=== PATIENT | male | born 1990 ===

== ENCOUNTER 2020-08-25 14:09 | Emergency (ER) | payer MEDICAID ==
[2020-08-25 15:05] LABS: Absolute Neutrophil Ct (ANC) 7.85 (1.4-6.9); BASOPHIL % 0.3 % (0.0-0.4); Basophil (Absolute #) 0.03 (0-0.4); Eosinophil % 2.4 % (0.00-5.0); Eosinophil (Absolute #) 0.28 (0-0.5); Hemoglobin 16.3 gm/dl (12.5-18.0); Lymphocyte (Absolute #) 2.86 (1.0-4.6); Mean Cell Volume 92.6 fl (78-100); Mean Corpuscular Hemoglobin 30.2 pg (26-32); Mean Corpuscular Hgb Concent. 32.6 g/dl (32-36); Mean Platelet Volume 10.8 fl (7.5-11.0); Monocyte (Absolute #) 0.88 (0.0-1.3); Monocytes % 7.4 % (0.0-12.0); Neutrophil % 65.9 % (36.0-66.0); Platelet Count 253 K/mm3 (150-450); Red Cell Distribution Width 14.9 % (11.5-14.0); White Blood Count 11.9 K/mm3 (4.0-10.5)
[2020-08-25 15:15] LABS: ALBUMIN 4.4 g/dL (3.5-5.0); ALKALINE PHOSPHATASE 89 U/L (38-126); BLOOD UREA NITROGEN 18 mg/dL (9-20); CHLORIDE 104 mmol/L (98-107); Calcium 9.4 mg/dL (8.4-10.2); Carbon Dioxide 30 mmol/L (22-30); Creatinine 1 0.88 mg/dL (0.66-1.25); EST GLOMERULAR FILTRATION RATE > 60.0 ML/MIN; Glucose 86 mg/dL (74-106); Potassium 4.8 mmol/L (3.5-5.1); SGOT/AST 46 U/L (17-59); SGPT/ALT 71 U/L (0-50); SODIUM 138 mmol/L (137-145); Total Protein 7.9 g/dL (6.3-8.2)
[2020-08-25 15:17] LABS: ACETAMINOPHEN < 10 ug/ml (10-30); ETHYL ALCOHOL < 10 mg/dL (0-10); SALICYLATE < 1.0 mg/dL (2-20)
--- NOTE | 2020-08-25 15:19 | ERPHSYRPT ---
- History of Present Illness Time Seen by Provider: 08/25/20 14:30 Source: patient, family, EMS Exam Limitations: no limitations Patient Subjective Stated Complaint: PT HERE FOR STRANGLING SELF AT HOME TODAY. Triage Nursing Assessment: PT ARRIVED PER EMS FOR STRANGLING SELF AT HOME, TOLD EMS THAT THEY HEARD A LOUD NOISE AND WHEN WENT UP STAIRS HE WAS ON FLOOR IN A CLOSET WITH A ROPE AROUND NECK AND THE HAD IT OFF, PT IS ALERT, ANGRY,HAS PU NCTURE WOUND TO TONGUE WITH SOME SWELLING, DRIED BLOOD TO NOSE, AND REDDNESS TO NECK WITH SOME SWELLING, HE DENIES ANY LOC, REFUSES C COLLAR IN PLACE,AND STATES HE LIKE THROAT IS SWELLING, NO DROOLING Physician History: 29 years old is brought in the ER for evaluation after he tried to hang himself with a rope at home. Per she heard a loud noise upstairs and found him lying on the floor with a rope around his neck in the closet. Patient report he tried to hang himself but rope broke. Patient is agitated on presentation in the ER and wants to go home, reports he is not suicidal but cannot give any explanation why he tried to hang himself. He has done same way almost a year ago as well per patient. Patient reports using drugs regularly and last use was 2 days ago denies alcohol intake. Denies any homicidal ideations. Patient reports his kids were taken away from him recently and that makes him very anxious and depressed and do not know what to do and do not see any hope that he will be able to see that Severity of Symptoms-Max: severe Associated Symptoms: agitated, anxiety, depressed, frustrated, No hallucinating Previous symptoms: same symptoms as today Allergies/Adverse Reactions: No Known Drug Allergies Allergy (Unverified 08/25/20 14:39) Home Medications: No Reportable Medications [No Reported Medications] 08/25/20 [History] Hx Tetanus, Diphtheria Vaccination/Date Given: No Hx Pneumococcal Vaccination/Date Given: No Immunizations Up to Date: Yes Travel Risk - International Travel Have you traveled outside of the country in past 3 weeks: No - Coronavirus Screening Are you exhibiting any of the following symptoms?: No Close contact with a COVID-19 positive Pt in past 14-21 Days: No - Past Medical History Pertinent Past Medical History: No - Past Surgical History Past Surgical History: Yes Gastrointestinal: Appendectomy - Social History Smoking Status: Current every day smoker Exposure to second hand smoke: Yes Drug Use: methamphetamines Patient Lives Alone: Yes - Review of Systems Constitutional: No Symptoms Eyes: No Symptoms Ears, Nose, & Throat: Other Respiratory: No Symptoms Cardiac: No Symptoms Abdominal/Gastrointestinal: No Symptoms Genitourinary Symptoms: No Symptoms Musculoskeletal: Myalgias Skin: No Symptoms Neurological: No Symptoms Psychological: Drug Abuse, Anxiety, Depression, Suicidal Ideations Endocrine: No Symptoms Hematologic/Lymphatic: No Symptoms - Nursing Vital Signs Nursing Vital Signs: Initial Vital Signs Temperature 97.1 F 08/25/20 14:12 Respiratory Rate 16 08/25/20 14:12 Pain Scale Pain Intensity 4 - Physical Exam General Appearance: alert, anxiety Eyes, Ears, Nose, Throat Exam: other (Dried blood on the left nostril but no nasal bleeding noticed otherwise.) Neck Exam: supple, other (Strangulation harrison around the lateral neck bilaterally with some muscle tenderness but no midline tenderness. Intact range of motion.), No subcutaneous emphysema, No tenderness midline Respiratory Exam: normal breath sounds, lungs clear Cardiovascular Exam: regular rate/rhythm, normal heart sounds Gastrointestinal/Abdominal Exam: soft, normal bowel sounds, No tenderness Extremities Exam: normal inspection, normal range of motion Neurological Exam: alert, calm, ice handler II-XII nml as tested, oriented x 3 Behavior/Eye Contact/Speech: alert & cooperative, cooperative, good eye contact, increased rate of speech, compulsive Thoughts/Hallucinations: no apparent hallucination Skin Exam: normal color SpO2 Interpretation: normal O2 Delivery: Room Air - Course EKG Interpreted by Me: RATE (102), Sinus Tach, NORMAL AXIS, NORMAL INTERVALS, NORMAL QRS Ordered Tests: Active Orders 24 hr Category Date Time Status EKG-ER Only STAT Care 08/25/20 14:30 Active IV Insertion STAT Care 08/25/20 14:30 Active House Regular Diet Diet 08/26/20 Breakfast Active CERVICAL SPINE WITH CONTRAST [CT] Stat Exams 08/25/20 16:14 Completed CHEST 1 VIEW (PORTABLE) Stat Exams 08/25/20 14:56 Completed HEAD WITHOUT CONTRAST [CT] Stat Exams 08/25/20 14:31 Completed ACETAMINOPHEN Stat Lab 08/25/20 14:40 Completed CBC W DIFF Stat Lab 08/25/20 14:40 Completed CK (IN-HOUSE) [CK-Creatinine Phosphokinase] Stat Lab 08/25/20 14:40 Completed CMP Stat Lab 08/25/20 14:40 Completed ETHYL ALCOHOL Stat Lab 08/25/20 14:40 Completed SALICYLATE Stat Lab 08/25/20 14:40 Completed UA W/RFX UR CULTURE Stat Lab 08/25/20 18:14 Completed Urine Triage Profile Stat Lab 08/25/20 18:14 Received Lab/Rad Data: Laboratory Result Diagrams 08/25/20 14:40 08/25/20 14:40 Laboratory Results 08/25/20 08/25/20 08/25/20 Range/Units 18:14 16:21 14:40 WBC (4.0-10.5) K/mm3 RBC (4.1-5.6) M/mm3 Hgb (12.5-18.0) gm/dl Hct (42-50) % MCV (78-100) fl MCH (26-32) pg MCHC (32-36) g/dl RDW (11.5-14.0) % Plt Count (150-450) K/mm3 MPV (7.5-11.0) fl Gran % (36.0-66.0) % Eos # (Auto) (0-0.5) Absolute Lymphs (auto) (1.0-4.6) Absolute Monos (auto) (0.0-1.3) Lymphocytes % (24.0-44.0) % Monocytes % (0.0-12.0) % Eosinophils % (0.00-5.0) % Basophils % (0.0-0.4) % Absolute Granulocytes (1.4-6.9) Basophils # (0-0.4) Sodium (137-145) mmol/L Potassium (3.5-5.1) mmol/L Chloride (98-107) mmol/L Carbon Dioxide (22-30) mmol/L Anion Gap (5-15) MEQ/L BUN (9-20) mg/dL Creatinine (0.66-1.25) mg/dL Estimated GFR ML/MIN Glucose (74-106) mg/dL Calcium (8.4-10.2) mg/dL Total Bilirubin (0.2-1.3) mg/dL AST (17-59) U/L ALT (0-50) U/L Alkaline Phosphatase (38-126) U/L Creatine Kinase 157 (55-170) U/L Serum Total Protein (6.3-8.2) g/dL Albumin (3.5-5.0) g/dL Urine Color YELLOW (YELLOW) Urine Appearance CLOUDY (CLEAR) Urine pH 6.0 (5-6) Ur Specific Cheney 1.020 (1.005-1.025) Urine Protein 30 (Negative) Urine Ketones NEGATIVE (NEGATIVE) Urine Blood NEGATIVE (0-5) Klaus/ul Urine Nitrite NEGATIVE (NEGATIVE) Urine Bilirubin NEGATIVE (NEGATIVE) Urine Urobilinogen 2 (0-1) mg/dL Ur Leukocyte Esterase NEGATIVE (NEGATIVE) Urine WBC (Auto) 0-2 (0-5) /HPF Urine RBC (Auto) 0-2 (0-2) /HPF U Epithel Cells (Auto) NONE (FEW) /HPF Urine Bacteria (Auto) NONE SEEN (NEGATIVE) /HPF Amorphous Crystals FEW (NEGATIVE) /HPF Urine Mucus (Auto) SLIGHT (NEGATIVE) /HPF Urine Sperm (Auto) PRESENT (NEGATIVE) /HPF Urine Culture Reflexed NO (NO) Urine Glucose NEGATIVE (NEGATIVE) mg/dL Salicylates (2-20) mg/dL Acetaminophen (10-30) ug/ml Ethyl Alcohol (0-10) mg/dL SARS-CoV-2 (PCR) NEGATIVE (NEGATIVE) 08/25/20 08/25/20 Range/Units 14:40 14:40 WBC 11.9 H (4.0-10.5) K/mm3 RBC 5.40 (4.1-5.6) M/mm3 Hgb 16.3 (12.5-18.0) gm/dl Hct 50.0 (42-50) % MCV 92.6 (78-100) fl MCH 30.2 (26-32) pg MCHC 32.6 (32-36) g/dl RDW 14.9 H (11.5-14.0) % Plt Count 253 (150-450) K/mm3 MPV 10.8 (7.5-11.0) fl Gran % 65.9 (36.0-66.0) % Eos # (Auto) 0.28 (0-0.5) Absolute Lymphs (auto) 2.86 (1.0-4.6) Absolute Monos (auto) 0.88 (0.0-1.3) Lymphocytes % 24.0 (24.0-44.0) % Monocytes % 7.4 (0.0-12.0) % Eosinophils % 2.4 (0.00-5.0) % Basophils % 0.3 (0.0-0.4) % Absolute Granulocytes 7.85 H (1.4-6.9) Basophils # 0.03 (0-0.4) Sodium 138 (137-145) mmol/L Potassium 4.8 (3.5-5.1) mmol/L Chloride 104 (98-107) mmol/L Carbon Dioxide 30 (22-30) mmol/L Anion Gap 9.0 (5-15) MEQ/L BUN 18 (9-20) mg/dL Creatinine 0.88 (0.66-1.25) mg/dL Estimated GFR > 60.0 ML/MIN Glucose 86 (74-106) mg/dL Calcium 9.4 (8.4-10.2) mg/dL Total Bilirubin 0.30 (0.2-1.3) mg/dL AST 46 (17-59) U/L ALT 71 H (0-50) U/L Alkaline Phosphatase 89 (38-126) U/L Creatine Kinase (55-170) U/L Serum Total Protein 7.9 (6.3-8.2) g/dL Albumin 4.4 (3.5-5.0) g/dL Urine Color (YELLOW) Urine Appearance (CLEAR) Urine pH (5-6) Ur Specific Cheney (1.005-1.025) Urine Protein (Negative) Urine Ketones (NEGATIVE) Urine Blood (0-5) Klaus/ul Urine Nitrite (NEGATIVE) Urine Bilirubin (NEGATIVE) Urine Urobilinogen (0-1) mg/dL Ur Leukocyte Esterase (NEGATIVE) Urine WBC (Auto) (0-5) /HPF Urine RBC (Auto) (0-2) /HPF U Epithel Cells (Auto) (FEW) /HPF Urine Bacteria (Auto) (NEGATIVE) /HPF Amorphous Crystals (NEGATIVE) /HPF Urine Mucus (Auto) (NEGATIVE) /HPF Urine Sperm (Auto) (NEGATIVE) /HPF Urine Culture Reflexed (NO) Urine Glucose (NEGATIVE) mg/dL Salicylates < 1.0 L (2-20) mg/dL Acetaminophen < 10 L (10-30) ug/ml Ethyl Alcohol < 10 (0-10) mg/dL SARS-CoV-2 (PCR) (NEGATIVE) - Progress Progress: unchanged Progress Note: 08/25/20 17:42 29 years old is evaluated for suicidal attempt with hanging himself. Patient has hang harrison on his neck with some muscular tenderness. I have recommended c- collar which patient refused. Patient wants to leave. ED hold is placed on. I have obtained CT head and neck which are negative. Chest x-ray negative. EKG did not show any acute ischemic changes. Work-up in the ER is grossly negative. He is medically cleared. Behavioral health is consulted and patient is accepted for transfer. 08/25/20 18:50 Dr. Coronel is the accepting physician at [facility]. Counseled pt/family regarding: lab results, diagnosis, rad results - Departure Departure Disposition: Transfer Clinical Impression: Suicide attempt Condition: Stable Critical Care Time: No Referrals: DOCTOR,NO FAMILY [Primary Care Provider] -
--- NOTE | 2020-08-25 18:24 | XRAY ---
Indication: Attempted suicide. Comparison: July 15, 2010. Portable chest demonstrates normal heart, lungs, and bony thorax.
--- NOTE | 2020-08-25 18:26 | XRAY ---
Indication: Attempted suicide by hanging. Loss of consciousness. Multiple contiguous axial images obtained through the head without contrast. Comparison: December 16, 2009. Normal appearing brain parenchyma, ventricles, and bony calvarium. Visualized paranasal sinuses and mastoid air cells are clear. Impression: Continued normal CT head without contrast exam. Comment: Preliminary interpretation was made by [facility]. No critical discrepancy.
[2020-08-25 18:28] LABS: Amourphous Crystal FEW /HPF (NEGATIVE); Appearance CLOUDY (CLEAR); Bilirubin NEGATIVE (NEGATIVE); Blood NEGATIVE Ery/ul (0-5); Glucose NEGATIVE (NEGATIVE); Ketones NEGATIVE (NEGATIVE); Leukocyte Esterase NEGATIVE (NEGATIVE); Mucus SLIGHT /HPF (NEGATIVE); Nitrite NEGATIVE (NEGATIVE); Protein,Urine Dip 30 (Negative); RBC 0-2 /HPF (0-2); Sperm PRESENT /HPF (NEGATIVE); Urobilinogen 2 mg/dL (0-1); WBC 0-2 /HPF (0-5)
--- NOTE | 2020-08-25 18:28 | XRAY ---
Indication: Attempted suicide by hanging. Neck pain. Multiple contiguous axial images obtained through the cervical spine. Sagittal and coronal reformatted images obtained. Comparison: None. Axial images negative for acute fracture, suspicious bony lesions, or spinal canal stenosis. Minimal C5-C6 broad-based disc osteophyte complex. Sagittal and coronal reformatted images and this is normal alignment with vertebral body heights/disc spaces maintained. No acute fracture, subluxation, or jumped facets. Normal appearing craniocervical junction. Visualized noncontrasted soft tissues including apices are unremarkable. Impression: Minimal C5-C6 degenerative disc disease. Otherwise negative CT cervical spine. Comment: Preliminary interpretation was made by [facility]. No critical discrepancy.
[2020-08-25 18:29] LABS: Bacteria NONE SEEN /HPF (NEGATIVE)
[2020-08-25 18:39] LABS: Barbiturate,Urine NEGATIVE (NEGATIVE); Benzodiazepine,Urine NEGATIVE (NEGATIVE); Cocaine,Urine NEGATIVE (NEGATIVE); Methadone,Urine NEGATIVE (NEGATIVE); Opiate,Urine NEGATIVE (NEGATIVE); PCP,Urine NEGATIVE (NEGATIVE); THC,Urine POSITIVE (NEGATIVE)
[2020-08-25 19:09] LABS: Amphetamine,Urine POSITIVE (NEGATIVE)
[2020-08-25 20:09] VITALS: BP 131/82; PULSE 92; O2SAT 98
== END 2020-08-25 21:00 | disposition short-term general hospital (02) ==
LOC: ED 14:09
DX: T14.91XA Suicide attempt, initial encounter (principal); S01.532A Puncture wound without foreign body of oral cavity, initial encounter; X83.8XXA Intentional self-harm by other specified means, initial encounter; Y93.89 Activity, other specified; Y92.89 Other specified places as the place of occurrence of the external cause; Z72.0 Tobacco use; F41.9 Anxiety disorder, unspecified; F32.9 Major depressive disorder, single episode, unspecified
CPT/HCPCS: 36415; 70450; 71045; 72126; 80053; 80307; 81001; 82550; 85025; 93005; 99285; U0003; G0480

== ENCOUNTER 2021-05-23 21:52 | Emergency (ER) | payer MEDICAID, OTHER ==
--- NOTE | 2021-05-23 22:25 | ERPHSYRPT ---
- History of Present Illness Time Seen by Provider: 05/23/21 22:25 Source: patient Exam Limitations: no limitations Patient Subjective Stated Complaint: Patient states " Couple of weeks ago I punched through the glass window at my house and cut my left hand. Today it is draining yellow pus and the pain is becoming unbearable." Triage Nursing Assessment: Patient arrived to ED and ambulated back to room without difficulty. Patient A/O times 4. Patient able to follow instructions without difficulty. Patient left hand noted to have old wounds beside thumb and pinky finger that are scabbed with scant clear/yellowish drainage. Warmth noted upon touch of left hand. Increase in redness noted to left hand. + radial pulse noted to right upper extremity. Patient is able to wiggle fingers and move left hand without difficulty but patient states his thumb is numb. Patient states no numbness or tingling noted in other fingers. Patient denies any N/V. Patient denies any loose stools. Patient afebrile. Unable to visualize if foreign object is under skin R/T scab. Patient told RN he had MD appt today but didn't go because he had his kids and he didn't have a car. Physician History: This is a right-handed 30-year-old white male who punched a glass window at home out of anger 2 weeks ago. Since that time there is been some improvement but there is still some redness and swelling of the left thumb and left fifth digit that has tenderness present. He has no fever. He has no known drug allergies. Occurred: other (2 weeks ago) Method of Injury: direct blow Quality: sharpness Severity of Pain-Max: mild (To moderate) Severity of Pain-Current: mild (To moderate) Extremities Pain Location: thumb: left, 5th finger: left Modifying Factors: Improves With: movement Associated Symptoms: none Allergies/Adverse Reactions: No Known Drug Allergies Allergy (Unverified 05/23/21 22:02) Hx Tetanus, Diphtheria Vaccination/Date Given: No Hx Influenza Vaccination/Date Given: No Hx Pneumococcal Vaccination/Date Given: No Immunizations Up to Date: Yes Travel Risk - International Travel Have you traveled outside of the country in past 3 weeks: No - Coronavirus Screening Are you exhibiting any of the following symptoms?: No Close contact with a COVID-19 positive Pt in past 14-21 Days: No - Vaccine Status Have you recieved a Covid-19 vaccination: No - Review of Systems Constitutional: No Symptoms Eyes: No Symptoms Ears, Nose, & Throat: No Symptoms Respiratory: No Symptoms Cardiac: No Symptoms Abdominal/Gastrointestinal: No Symptoms Genitourinary Symptoms: No Symptoms Musculoskeletal: Injury Skin: Other (Eschar left hand, specifically left thumb and left fifth digit) Neurological: No Symptoms Psychological: No Symptoms Endocrine: No Symptoms Hematologic/Lymphatic: No Symptoms Immunological/Allergic: No Symptoms All Other Systems: Reviewed and Negative - Past Medical History Pertinent Past Medical History: No Neurological History: No Pertinent History ENT History: No Pertinent History Cardiac History: No Pertinent History Respiratory History: No Pertinent History Endocrine Medical History: No Pertinent History Musculoskeletal History: No Pertinent History GI Medical History: No Pertinent History History: No Pertinent History Psycho-Social History: No Pertinent History Male Reproductive Disorders: No Pertinent History - Past Surgical History Past Surgical History: Yes Neuro Surgical History: No Pertinent History Cardiac: No Pertinent History Respiratory: No Pertinent History Gastrointestinal: Appendectomy Genitourinary: No Pertinent History Musculoskeletal: No Pertinent History Male Surgical History: No Pertinent History - Social History Smoking Status: Current every day smoker How long have you smoked: 20 years Exposure to second hand smoke: Yes Drug Use: methamphetamines Patient Lives Alone: No - Nursing Vital Signs Nursing Vital Signs: Initial Vital Signs Temperature 98.0 F 05/23/21 21:53 Pulse Rate 111 H 05/23/21 21:53 Respiratory Rate 20 05/23/21 21:53 Blood Pressure 141/102 05/23/21 21:53 O2 Sat by Pulse Oximetry 99 05/23/21 21:53 Pain Scale Pain Intensity 8 - Physical Exam General Appearance: no apparent distress, alert, anxiety Eyes, Ears, Nose, Throat Exam: normal ENT inspection, moist mucous membranes Neck Exam: normal inspection, non-tender, supple, full range of motion Cardiovascular/Respiratory Exam: chest non-tender, no respiratory distress Abdominal Exam: non-tender Back Exam: normal inspection, normal range of motion, No CVA tenderness, No vertebral tenderness Shoulder Exam: normal inspection, non-tender, no evidence of injury, normal ROM Elbow/Forearm Exam: normal inspection, non-tender, no evidence of injury, normal ROM Wrist Exam: normal inspection, non-tender, no evidence of injury, normal ROM Hand Exam: normal ROM, soft tissue tenderness (In the areas of eschars left thumb and left fifth digit with redness present.), swelling Neuro/Tendon Exam: normal sensation, normal motor functions, normal tendon functions, responds to pain, no evidence tendon injury, tendon function deficit Mental Status Exam: alert, oriented x 3, cooperative Skin Exam: other (Eschar left thumb and left fifth digit.) SpO2 Interpretation: normal SpO2: 99 O2 Delivery: Room Air - Course Nursing assessment & vital signs reviewed: Yes Ordered Tests: Active Orders 24 hr Category Date Time Status HAND (MINIMUM 3 VIEWS) Stat Exams 05/23/21 22:16 Ordered - Progress Progress: unchanged Progress Note: 05/23/21 22:47 X-ray left hand reveals no evidence of any radiopaque foreign body. No evidence of fracture or dislocation. - Departure Departure Disposition: Home Clinical Impression: Cellulitis of left hand Condition: Stable Critical Care Time: No Referrals: DOCTOR,NO FAMILY [Primary Care Provider] - Additional Instructions: Soak left hand in warm soapy water or Epson salt twice a day. May scrub off eschar in each site and eat soaking. Add ibuprofen for pain control. Follow-up with your primary care physician for persistent tenderness, redness, swelling. Prescriptions: Hydrocodone/APAP 5/325 [Hawth[place] 5/325 mg] 1 each PO Q12H PRN PRN #4 tablet MDD 2 PRN Reason: Pain Smz/Tmp Ds Tablet [Bactrim Ds Tablet] 1 udtab PO BID #14 tablet
[2021-05-23] MEDS ORDERED: NORCO 5/325 MG PO ONE (22:40)
[2021-05-23] MEDS ORDERED: BACTRIM DS TABLET PO ONE ×2 (22:41→22:45)
[2021-05-23] MEDS ORDERED: NORCO 5/325 MG ONE (22:45)
[2021-05-23 23:05] VITALS: BP 143/82; PULSE 98; O2SAT 100
--- NOTE | 2021-05-25 09:55 | XRAY ---
Exam: 3 view left hand series 05/23/2021. Comparison: None. Indication: Hand went through glass 2 weeks ago; fifth PIP joint, palmar side healing laceration with difficulty moving fifth finger; scab is seen on top of the hand in area of first carpal-metacarpal joint with recent drainage/numbness in thumb. Findings: AP, oblique, and lateral radiographs of the left hand were obtained. I see no acute left hand fracture or dislocation. No radiopaque soft tissue foreign body is seen. The joint spaces appear unremarkable. There is an ununited ulnar styloid process, appears old. No other bone lesion is seen. Impression: 1. No radiopaque soft tissue foreign body is seen within the left hand. 2. No left hand fracture or dislocation is seen.
== END 2021-05-23 23:00 | disposition home or self-care (01) ==
LOC: ED 21:52
DX: L03.114 Cellulitis of left upper limb (principal); M79.642 Pain in left hand
CPT/HCPCS: 73130; 99283; A9270-GY